=== PATIENT | male | born 1955 | race Caucasian/White ===

== ENCOUNTER 2016-07-09 08:33 | Inpatient (IN) | payer BC ==
[2016-07-09] MEDS ORDERED: SODIUM CHLORIDE 0.9% 1,000 ML IV STA (09:15)
[2016-07-09] MEDS ORDERED: FAMOTIDINE 20 MG/2 ML VIAL IV STA (09:16)
[2016-07-09] MEDS ORDERED: ACETAMINOPHEN IV (For NPO) 1,000 MG in SALINE 1 100ML.BAG IVPB STA (09:16)
--- NOTE | 2016-07-09 09:19 | ED ---
GI Bleed HPI - General Chief complaint: GI Bleed Stated complaint: vomiting blood/Stomach pain Time Seen by Provider: 07/09/16 08:50 Source: patient, RN notes reviewed Mode of arrival: ambulatory Limitations: no limitations - History of Present Illness Initial comments: This is a 61-year-old male with a history of asthma was a nonsmoker and has polycythemia but otherwise unremarkable history who states he had the onset this morning of queasiness and upset stomach he had nausea and vomited a large amount of dark red bloody appearing material. He feels somewhat lightheaded and dizzy is upper abdominal discomfort is mild to moderate. No chest pain no shortness breath no other symptoms. No diarrhea no blood per rectum. He has no prior history of GI bleeding. He states he did lose his insurance last year he was diagnosed with polycythemia about 2 years ago he's had no blood draw in a while. MD complaint: gross hematemesis - Related Data Home Medications Medication Instructions Recorded Confirmed Albuterol Sulfate [Proair Hfa] 2 puff INHALATION RT-Q6H PRN 11/04/14 07/09/16 Advair Hfa (Unknown Dose) 1 puff INHALATION RT-BID 07/09/16 07/09/16 Aspirin 325 mg PO DAILY 07/09/16 07/09/16 Ibuprofen [Advil] 400 mg PO Q6H PRN 07/09/16 07/09/16 Lisinopril-Hctz 10-12.5 mg 1 tab PO DAILY 07/09/16 07/09/16 [Zestoretic 10-12.5] Allergies Allergy/AdvReac Type Severity Reaction Status Date / Time influenza virus vaccine, Allergy Unknown Verified 07/09/16 08:44 specific [influenza virus vacc,specific] Review of Systems ROS Statement: Those systems with pertinent positive or pertinent negative responses have been documented in the HPI. ROS Other: All systems not noted in ROS Statement are negative. Past Medical History Past Medical History: Asthma Additional Past Medical History / Comment(s): blood disorder History of Any Multi-Drug Resistant Organisms: None Reported Past Surgical History: Hernia Repair Past Psychological History: No Psychological Hx Reported Smoking Status: Never smoker Past Alcohol Use History: Occasional Past Drug Use History: None Reported General Exam - General Exam Comments Initial Comments: This is a well-developed well-nourished awake alert oriented 3 male Limitations: no limitations General appearance: alert Head exam: Present: atraumatic, normocephalic, normal inspection Eye exam: Present: PERRL, EOMI, other (Pale conjunctiva) ENT exam: Present: normal exam, mucous membranes moist Neck exam: Present: normal inspection. Absent: tenderness, meningismus, lymphadenopathy Respiratory exam: Present: normal lung sounds bilaterally. Absent: respiratory distress, wheezes, rales, rhonchi, stridor Cardiovascular Exam: Present: regular rate, normal rhythm, normal heart sounds. Absent: systolic murmur, diastolic murmur, rubs, gallop, clicks GI/Abdominal exam: Present: soft, tenderness (Epigastric tenderness palpation), hyperactive bowel sounds. Absent: distended, guarding, rebound, rigid Rectal exam: Present: heme (+) stool, black stool. Absent: mass, tenderness Extremities exam: Present: normal inspection, full ROM, normal capillary refill. Absent: tenderness, pedal edema, joint swelling, calf tenderness Back exam: Present: normal inspection Neurological exam: Present: alert, oriented X3, CN II-XII intact Psychiatric exam: Present: normal affect, normal mood Skin exam: Present: warm, dry, intact, pallor. Absent: rash Course Vital Signs 07/09/16 07/09/16 07/09/16 08:41 09:51 10:56 Temperature 97.6 F Pulse Rate 98 88 92 Respiratory 24 18 18 Rate Blood Pressure 92/57 100/57 140/74 O2 Sat by Pulse 97 95 98 Oximetry 07/09/16 12:05 Temperature Pulse Rate 102 H Respiratory 18 Rate Blood Pressure 130/82 O2 Sat by Pulse 97 Oximetry - Reevaluation(s) Reevaluation #1: 07/09/16 12:51 I did perform a rectal exam of the patient was heme positive. Patient potassium initially was read as elevated repeat trough reveals a 6.0 potassium level patient is there had a problem with that before. Medical Decision Making - Medical Decision Making Patient will be admitted with GI consultation. - Lab Data Result diagrams: 07/09/16 09:14 07/09/16 12:03 Lab Results 07/09/16 07/09/16 07/09/16 Range/Units 09:14 09:14 09:14 WBC 40.9 H* (3.8-10.6) k/uL RBC 6.73 H (4.30-5.90) m/uL Hgb 16.7 (13.0-17.5) gm/dL Hct 53.9 H (39.0-53.0) % MCV 80.1 (80.0-100.0) fL MCH 24.9 L (25.0-35.0) pg MCHC 31.1 (31.0-37.0) g/dL RDW 16.8 H (11.5-15.5) % Plt Count 768 H (150-450) k/uL Neutrophils % (Manual) 81.5 % Band Neutrophils % 4.0 % Lymphocytes % (Manual) 10.5 % Monocytes % (Manual) 3.0 % Eosinophils % (Manual) 0.5 % Myelocytes % 0.5 % Neutrophils # (Manual) 35.0 H (1.3-7.7) k/uL Lymphocytes # (Manual) 4.3 (1.0-4.8) k/uL Monocytes # (Manual) 1.2 H (0-1.0) k/uL Eosinophils # (Manual) 0.2 (0-0.7) k/uL Nucleated RBCs 0 (0-0) /100 WBC Manual Slide Review Performed Large Platelets Present Poikilocytosis (manual Present Anisocytosis Slight PT (9.0-12.0) sec INR (<1.1) APTT (22.0-30.0) sec Sodium 137 (137-145) mmol/L Potassium 6.6 H* (3.5-5.1) mmol/L Chloride 102 (98-107) mmol/L Carbon Dioxide 24 (22-30) mmol/L Anion Gap 11 mmol/L BUN 68 H (9-20) mg/dL Creatinine 1.12 (0.66-1.25) mg/dL Est GFR (MDRD) Af Amer >60 (>60 ml/min/1.73 sqM) Est GFR (MDRD) Non-Af >60 (>60 ml/min/1.73 sqM) Glucose 187 H (74-99) mg/dL Calcium 9.4 (8.4-10.2) mg/dL Magnesium 2.3 (1.6-2.3) mg/dL Total Bilirubin 0.7 (0.2-1.3) mg/dL AST 29 (17-59) U/L ALT 49 (21-72) U/L Alkaline Phosphatase 98 (38-126) U/L Total Creatine Kinase 35 L (55-170) U/L CK-MB (CK-2) 1.6 (0.0-2.4) ng/mL CK-MB (CK-2) Rel Index 4.6 Troponin I <0.012 (0.000-0.034) ng/mL Total Protein 7.0 (6.3-8.2) g/dL Albumin 3.8 (3.5-5.0) g/dL Amylase 36 (30-110) U/L Lipase 247 (23-300) U/L Stool Occult Blood (Negative) Blood Type Blood Type Confirm Blood Type Recheck Antibody Screen Spec Expiration Date 07/09/16 07/09/16 07/09/16 Range/Units 09:14 09:14 10:37 WBC (3.8-10.6) k/uL RBC (4.30-5.90) m/uL Hgb (13.0-17.5) gm/dL Hct (39.0-53.0) % MCV (80.0-100.0) fL MCH (25.0-35.0) pg MCHC (31.0-37.0) g/dL RDW (11.5-15.5) % Plt Count (150-450) k/uL Neutrophils % (Manual) % Band Neutrophils % % Lymphocytes % (Manual) % Monocytes % (Manual) % Eosinophils % (Manual) % Myelocytes % % Neutrophils # (Manual) (1.3-7.7) k/uL Lymphocytes # (Manual) (1.0-4.8) k/uL Monocytes # (Manual) (0-1.0) k/uL Eosinophils # (Manual) (0-0.7) k/uL Nucleated RBCs (0-0) /100 WBC Manual Slide Review Large Platelets Poikilocytosis (manual Anisocytosis PT 12.6 H (9.0-12.0) sec INR 1.3 (<1.1) APTT 23.2 (22.0-30.0) sec Sodium (137-145) mmol/L Potassium (3.5-5.1) mmol/L Chloride (98-107) mmol/L Carbon Dioxide (22-30) mmol/L Anion Gap mmol/L BUN (9-20) mg/dL Creatinine (0.66-1.25) mg/dL Est GFR (MDRD) Af Amer (>60 ml/min/1.73 sqM) Est GFR (MDRD) Non-Af (>60 ml/min/1.73 sqM) Glucose (74-99) mg/dL Calcium (8.4-10.2) mg/dL Magnesium (1.6-2.3) mg/dL Total Bilirubin (0.2-1.3) mg/dL AST (17-59) U/L ALT (21-72) U/L Alkaline Phosphatase (38-126) U/L Total Creatine Kinase (55-170) U/L CK-MB (CK-2) (0.0-2.4) ng/mL CK-MB (CK-2) Rel Index Troponin I (0.000-0.034) ng/mL Total Protein (6.3-8.2) g/dL Albumin (3.5-5.0) g/dL Amylase (30-110) U/L Lipase (23-300) U/L Stool Occult Blood (Negative) Blood Type A Positive Blood Type Confirm A Positive Blood Type Recheck CABO Indicated Antibody Screen NEGATIVE Spec Expiration Date 07/12/2016231307/09/16 07/09/16 Range/Units 11:20 12:03 WBC (3.8-10.6) k/uL RBC (4.30-5.90) m/uL Hgb (13.0-17.5) gm/dL Hct (39.0-53.0) % MCV (80.0-100.0) fL MCH (25.0-35.0) pg MCHC (31.0-37.0) g/dL RDW (11.5-15.5) % Plt Count (150-450) k/uL Neutrophils % (Manual) % Band Neutrophils % % Lymphocytes % (Manual) % Monocytes % (Manual) % Eosinophils % (Manual) % Myelocytes % % Neutrophils # (Manual) (1.3-7.7) k/uL Lymphocytes # (Manual) (1.0-4.8) k/uL Monocytes # (Manual) (0-1.0) k/uL Eosinophils # (Manual) (0-0.7) k/uL Nucleated RBCs (0-0) /100 WBC Manual Slide Review Large Platelets Poikilocytosis (manual Anisocytosis PT (9.0-12.0) sec INR (<1.1) APTT (22.0-30.0) sec Sodium (137-145) mmol/L Potassium 6.0 H (3.5-5.1) mmol/L Chloride (98-107) mmol/L Carbon Dioxide (22-30) mmol/L Anion Gap mmol/L BUN (9-20) mg/dL Creatinine (0.66-1.25) mg/dL Est GFR (MDRD) Af Amer (>60 ml/min/1.73 sqM) Est GFR (MDRD) Non-Af (>60 ml/min/1.73 sqM) Glucose (74-99) mg/dL Calcium (8.4-10.2) mg/dL Magnesium (1.6-2.3) mg/dL Total Bilirubin (0.2-1.3) mg/dL AST (17-59) U/L ALT (21-72) U/L Alkaline Phosphatase (38-126) U/L Total Creatine Kinase (55-170) U/L CK-MB (CK-2) (0.0-2.4) ng/mL CK-MB (CK-2) Rel Index Troponin I (0.000-0.034) ng/mL Total Protein (6.3-8.2) g/dL Albumin (3.5-5.0) g/dL Amylase (30-110) U/L Lipase (23-300) U/L Stool Occult Blood Positive (Negative) Blood Type Blood Type Confirm Blood Type Recheck Antibody Screen Spec Expiration Date - EKG Data -: EKG Interpreted by Hi EKG shows normal: sinus rhythm, axis, intervals, QRS complexes, ST-T waves (EKG shows a normal sinus rhythm of 95 MI interval 146 QRS duration 82 QT/QTC of 344/ 43 to this is a normal-appearing EKG.) Rate: normal - Radiology Data Radiology results: report reviewed (X-rays and imaging/report were reviewed no acute findings), image reviewed Disposition Clinical Impression: Hematochezia, Upper GI bleed, Hyperkalemia Disposition: ADMITTED IP TO THIS [facility] Condition: Stable
[2016-07-09 09:35] LABS: Anisocytosis Slight; CH 25.3; CHCM 31.8; HCT 53.9 % (39.0-53.0); HDW 2.79; HGB 16.7 gm/dL (13.0-17.5); Immature Gran Flag Slight; MCH 24.9 pg (25.0-35.0); MCHC 31.1 g/dL (31.0-37.0); MCV 80.1 fL (80.0-100.0); Mean Platelet Volume 7.9; RBC 6.73 m/uL (4.30-5.90); RDW 16.8 % (11.5-15.5); WBC (Perox) 42.15
[2016-07-09 09:47] LABS: ALT 49 U/L (21-72); AST 29 U/L (17-59); Alkaline Phosphatase 98 U/L (38-126); Amylase 36 U/L (30-110); Anion Gap 11 mmol/L; Blood Urea Nitrogen 68 mg/dL (9-20); Calcium 9.4 mg/dL (8.4-10.2); Carbon Dioxide 24 mmol/L (22-30); Chloride 102 mmol/L (98-107); Glucose 187 mg/dL (74-99); Magnesium 2.3 mg/dL (1.6-2.3); Non-African American GFR(MDRD) >60 (>60 ml/min/1.73 sqM); Sodium 137 mmol/L (137-145); Total Bilirubin 0.7 mg/dL (0.2-1.3)
--- NOTE | 2016-07-09 09:50 | XR ---
EXAMINATION TYPE: XR chest 2V DATE OF EXAM: 07/09/2016 9:39 AM COMPARISON: Prior chest x-ray unavailable HISTORY: Vomiting blood, pain and nausea TECHNIQUE: Frontal and lateral views of the chest are obtained. FINDINGS: There is no focal air space opacity, pleural effusion, or pneumothorax seen. The cardiac silhouette size is within normal limits. There are overlying cardiac leads. Patient is rotated. Incr eased AP diameter of the chest and retrosternal airspace could be indicative of underlying COPD. Dens ity at the left heart border thought likely to be related to epicardial fat pad. The osseous structur es are intact. IMPRESSION: No acute cardiopulmonary process. Additional findings above.
--- NOTE | 2016-07-09 09:51 | XR ---
Abdomen HISTORY: Pain and nausea Frontal view of the abdomen submitted on 2 images Comparison to chest x-ray same date There is no bowel obstruction or pneumoperitoneum. Fluid-filled stomach is present. Suspect phlebolit hs in the pelvis. Density at the left costophrenic angle may reflect some minimal scarring, difficult to exclude small amount of effusion. IMPRESSION: Findings of the left lung bases described. Nonobstructive bowel gas pattern.
[2016-07-09 09:52] LABS: INR 1.3 (<1.1); Partial Thromboplastin Time 23.2 sec (22.0-30.0); Prothrombin Time 12.6 sec (9.0-12.0)
[2016-07-09 09:54] LABS: WBC 40.9 k/uL (3.8-10.6)
[2016-07-09 09:56] LABS: Creatine Kinase 35 U/L (55-170)
[2016-07-09 10:01] LABS: Potassium 6.6 mmol/L (3.5-5.1)
[2016-07-09 10:08] LABS: Creatine Kinase MB 1.6 ng/mL (0.0-2.4); Troponin I <0.012 ng/mL (0.000-0.034)
[2016-07-09 10:13] LABS: Add Differential Manual Differential
[2016-07-09 10:16] LABS: Large Platelets Present; Manual Review Performed; Myelocytes % 0.5 %; Nucleated Red Blood Cells 0 /100 WBC (0-0); Total Cells Counted 200
[2016-07-09] MEDS ORDERED: NALOXONE 0.4 MG/ML 1 ML VIAL IV PRN (12:53)
[2016-07-09] MEDS ORDERED: FUROSEMIDE 10 MG/ML 4 ML VIAL IV STA (12:56)
--- NOTE | 2016-07-09 12:58 | ED ---
Medical Decision Making - Lab Data Result diagrams: 07/09/16 09:14 07/09/16 12:03 Lab Results 07/09/16 07/09/16 07/09/16 Range/Units 09:14 09:14 09:14 WBC 40.9 H* (3.8-10.6) k/uL RBC 6.73 H (4.30-5.90) m/uL Hgb 16.7 (13.0-17.5) gm/dL Hct 53.9 H (39.0-53.0) % MCV 80.1 (80.0-100.0) fL MCH 24.9 L (25.0-35.0) pg MCHC 31.1 (31.0-37.0) g/dL RDW 16.8 H (11.5-15.5) % Plt Count 768 H (150-450) k/uL Neutrophils % (Manual) 81.5 % Band Neutrophils % 4.0 % Lymphocytes % (Manual) 10.5 % Monocytes % (Manual) 3.0 % Eosinophils % (Manual) 0.5 % Myelocytes % 0.5 % Neutrophils # (Manual) 35.0 H (1.3-7.7) k/uL Lymphocytes # (Manual) 4.3 (1.0-4.8) k/uL Monocytes # (Manual) 1.2 H (0-1.0) k/uL Eosinophils # (Manual) 0.2 (0-0.7) k/uL Nucleated RBCs 0 (0-0) /100 WBC Manual Slide Review Performed Large Platelets Present Poikilocytosis (manual Present Anisocytosis Slight PT (9.0-12.0) sec INR (<1.1) APTT (22.0-30.0) sec Sodium 137 (137-145) mmol/L Potassium 6.6 H* (3.5-5.1) mmol/L Chloride 102 (98-107) mmol/L Carbon Dioxide 24 (22-30) mmol/L Anion Gap 11 mmol/L BUN 68 H (9-20) mg/dL Creatinine 1.12 (0.66-1.25) mg/dL Est GFR (MDRD) Af Amer >60 (>60 ml/min/1.73 sqM) Est GFR (MDRD) Non-Af >60 (>60 ml/min/1.73 sqM) Glucose 187 H (74-99) mg/dL Calcium 9.4 (8.4-10.2) mg/dL Magnesium 2.3 (1.6-2.3) mg/dL Total Bilirubin 0.7 (0.2-1.3) mg/dL AST 29 (17-59) U/L ALT 49 (21-72) U/L Alkaline Phosphatase 98 (38-126) U/L Total Creatine Kinase 35 L (55-170) U/L CK-MB (CK-2) 1.6 (0.0-2.4) ng/mL CK-MB (CK-2) Rel Index 4.6 Troponin I <0.012 (0.000-0.034) ng/mL Total Protein 7.0 (6.3-8.2) g/dL Albumin 3.8 (3.5-5.0) g/dL Amylase 36 (30-110) U/L Lipase 247 (23-300) U/L Stool Occult Blood (Negative) Blood Type Blood Type Confirm Blood Type Recheck Antibody Screen Spec Expiration Date 07/09/16 07/09/16 07/09/16 Range/Units 09:14 09:14 10:37 WBC (3.8-10.6) k/uL RBC (4.30-5.90) m/uL Hgb (13.0-17.5) gm/dL Hct (39.0-53.0) % MCV (80.0-100.0) fL MCH (25.0-35.0) pg MCHC (31.0-37.0) g/dL RDW (11.5-15.5) % Plt Count (150-450) k/uL Neutrophils % (Manual) % Band Neutrophils % % Lymphocytes % (Manual) % Monocytes % (Manual) % Eosinophils % (Manual) % Myelocytes % % Neutrophils # (Manual) (1.3-7.7) k/uL Lymphocytes # (Manual) (1.0-4.8) k/uL Monocytes # (Manual) (0-1.0) k/uL Eosinophils # (Manual) (0-0.7) k/uL Nucleated RBCs (0-0) /100 WBC Manual Slide Review Large Platelets Poikilocytosis (manual Anisocytosis PT 12.6 H (9.0-12.0) sec INR 1.3 (<1.1) APTT 23.2 (22.0-30.0) sec Sodium (137-145) mmol/L Potassium (3.5-5.1) mmol/L Chloride (98-107) mmol/L Carbon Dioxide (22-30) mmol/L Anion Gap mmol/L BUN (9-20) mg/dL Creatinine (0.66-1.25) mg/dL Est GFR (MDRD) Af Amer (>60 ml/min/1.73 sqM) Est GFR (MDRD) Non-Af (>60 ml/min/1.73 sqM) Glucose (74-99) mg/dL Calcium (8.4-10.2) mg/dL Magnesium (1.6-2.3) mg/dL Total Bilirubin (0.2-1.3) mg/dL AST (17-59) U/L ALT (21-72) U/L Alkaline Phosphatase (38-126) U/L Total Creatine Kinase (55-170) U/L CK-MB (CK-2) (0.0-2.4) ng/mL CK-MB (CK-2) Rel Index Troponin I (0.000-0.034) ng/mL Total Protein (6.3-8.2) g/dL Albumin (3.5-5.0) g/dL Amylase (30-110) U/L Lipase (23-300) U/L Stool Occult Blood (Negative) Blood Type A Positive Blood Type Confirm A Positive Blood Type Recheck CABO Indicated Antibody Screen NEGATIVE Spec Expiration Date 07/12/2016 - 231307/09/16 07/09/16 Range/Units 11:20 12:03 WBC (3.8-10.6) k/uL RBC (4.30-5.90) m/uL Hgb (13.0-17.5) gm/dL Hct (39.0-53.0) % MCV (80.0-100.0) fL MCH (25.0-35.0) pg MCHC (31.0-37.0) g/dL RDW (11.5-15.5) % Plt Count (150-450) k/uL Neutrophils % (Manual) % Band Neutrophils % % Lymphocytes % (Manual) % Monocytes % (Manual) % Eosinophils % (Manual) % Myelocytes % % Neutrophils # (Manual) (1.3-7.7) k/uL Lymphocytes # (Manual) (1.0-4.8) k/uL Monocytes # (Manual) (0-1.0) k/uL Eosinophils # (Manual) (0-0.7) k/uL Nucleated RBCs (0-0) /100 WBC Manual Slide Review Large Platelets Poikilocytosis (manual Anisocytosis PT (9.0-12.0) sec INR (<1.1) APTT (22.0-30.0) sec Sodium (137-145) mmol/L Potassium 6.0 H (3.5-5.1) mmol/L Chloride (98-107) mmol/L Carbon Dioxide (22-30) mmol/L Anion Gap mmol/L BUN (9-20) mg/dL Creatinine (0.66-1.25) mg/dL Est GFR (MDRD) Af Amer (>60 ml/min/1.73 sqM) Est GFR (MDRD) Non-Af (>60 ml/min/1.73 sqM) Glucose (74-99) mg/dL Calcium (8.4-10.2) mg/dL Magnesium (1.6-2.3) mg/dL Total Bilirubin (0.2-1.3) mg/dL AST (17-59) U/L ALT (21-72) U/L Alkaline Phosphatase (38-126) U/L Total Creatine Kinase (55-170) U/L CK-MB (CK-2) (0.0-2.4) ng/mL CK-MB (CK-2) Rel Index Troponin I (0.000-0.034) ng/mL Total Protein (6.3-8.2) g/dL Albumin (3.5-5.0) g/dL Amylase (30-110) U/L Lipase (23-300) U/L Stool Occult Blood Positive (Negative) Blood Type Blood Type Confirm Blood Type Recheck Antibody Screen Spec Expiration Date Disposition Clinical Impression: Upper GI bleed, Hyperkalemia, Hematemesis Disposition: ADMITTED IP TO THIS [facility] Condition: Stable Referrals: Lissy Rios MD [Primary Care Provider] - 1-2 days
[2016-07-09] MEDS: ALBUTEROL NEBULIZED 2.5 MG/3 ML INHALATION SCH ×2 (15:55→19:44)
[2016-07-09] MEDS: SODIUM CHLORIDE 0.9% 1,000 ML IV SCH ×2 (17:48→22:12)
[2016-07-09 20:22] LABS: Glucose,Whole Blood 143 mg/dL (75-99)
[2016-07-09] MEDS ORDERED: HYDROmorphone 1 MG/ML 1 ML SYRINGE IVP PRN (21:59)
[2016-07-09] MEDS ORDERED: ONDANSETRON 4 MG/2 ML VIAL IVP PRN (21:59)
[2016-07-09] MEDS: PANTOPRAZOLE 40 MG/10 ML VIAL IVP SCH (22:12)
[2016-07-09] MEDS: MELATONIN 3 MG TABLET PO SCH (23:29)
[2016-07-10] MEDS: PANTOPRAZOLE 40 MG/10 ML VIAL IVP SCH ×2 (07:55→22:21)
[2016-07-10 08:03] LABS: Anion Gap 10 mmol/L; Calcium 8.6 mg/dL (8.4-10.2); Carbon Dioxide 21 mmol/L (22-30); Chloride 115 mmol/L (98-107); Glucose 115 mg/dL (74-99); Non-African American GFR(MDRD) >60 (>60 ml/min/1.73 sqM); Potassium 5.3 mmol/L (3.5-5.1); Sodium 146 mmol/L (137-145)
[2016-07-10 08:09] LABS: Blood Urea Nitrogen 87 mg/dL (9-20)
[2016-07-10] MEDS: ALBUTEROL NEBULIZED 2.5 MG/3 ML INHALATION SCH ×3 (09:04→18:11)
--- NOTE | 2016-07-10 09:09 | P.CONS ---
History of Present Illness - Reason for Consult Consult date: 07/10/16 Hematemesis Requesting physician: Andrew Salinas - History of Present Illness 61-year-old gentleman patient of Dr. Rios with a past medical history of myeloproliferative blood disorder; patient is unsure possibly polycythemia vera , Mancuso's esophagus, hiatal hernia, and GERD. Admitted with acute hematemesis 1 yesterday. No aspirin, NSAIDs or alcohol. No history GI bleed. No weight loss. Afebrile. Patient was feeling somewhat nauseated over the last few days with midepigastric discomfort. Denies hematochezia or melena. Admission white count 40.9. Hemoglobin 16.7. Platelets 768. INR 1.3. Potassium 6.6. Stool occult blood positive. BUN 68. Creatinine 1.1. Repeat electrolytes this morning sodium 146. Potassium 5.3. BUN 87. Creatinine 0.9. CBC pending. Abdominal x-rays no bowel obstruction or pneumoperitoneum. Chest x-ray no acute cardiopulmonary process. EGD colonoscopy 2007 reported long segment of Mancuso's esophagus with linear erosions consistent with grade 3 reflux esophagitis colonoscopy normal with rectal polypectomy. Review of Systems Constitutional: Denies fever, chills, sweats, weight gain, or loss. HEENT: Negative for migraines, blurred vision or loss, earaches, drainage, tinnitus, oral mucosal lesions, dysphagia, or odynophagia. Cardiac: Negative for chest pain, arrhythmias, or palpitation. Respiratory: Negative for shortness of breath, hemoptysis, cough, or sputum production. Gastrointestinal: See HPI for pertinent findings. Genitourinary: Negative for hematuria, urgency, frequency, polyuria, dysuria, or penile discharge. Musculoskeletal: Negative for muscle aches, swelling, arthritis, and arthralgias. Neurologic: Negative for stroke or TIA. Endocrine/hematology: Negative for thyroid problems. History of blood disorder patient is unsure possibly polycythemia vera. Skin: Negative for rash or itching. Psychiatric: ADHD, history of anxiety depression. All systems: negative (See HPI) Past Medical History Past Medical History: Asthma, Blood Disorder, GERD/Reflux Additional Past Medical History / Comment(s): blood disorder-pt does not recall name but it causes blood to be too thick, mancuso's esophagus, small hiatal hernia, esophagitis/gastritis, recent URI completed ABX. History of Any Multi-Drug Resistant Organisms: None Reported Past Surgical History: Hernia Repair Additional Past Surgical History / Comment(s): Inguinal hernia repair (pt cannot recall laterallity), EGD/colonoscopy with benign polypectomy. Past Anesthesia/Blood Transfusion Reactions: No Reported Reaction Past Psychological History: ADD/ADHD, Anxiety, Depression Additional Psychological History / Comment(s): Pt resides alone. He is independent. Smoking Status: Never smoker Past Alcohol Use History: Occasional Past Drug Use History: None Reported - Past Family History Father Family Medical History: Eye Disorder Additional Family Medical History / Comment(s): Father is 90 yrs old. He has macular degeneration. Mother Family Medical History: Respiratory Disorder Additional Family Medical History / Comment(s): Mother is 88yrs old and has respiratory problems. Medications and Allergies Home Medications Medication Instructions Recorded Confirmed Type Albuterol Sulfate [Proair Hfa] 2 puff INHALATION RT-Q6H PRN 11/04/14 07/09/16 History Advair Hfa (Unknown Dose) 1 puff INHALATION RT-BID 07/09/16 07/09/16 History Aspirin 325 mg PO DAILY 07/09/16 07/09/16 History Ibuprofen [Advil] 400 mg PO Q6H PRN 07/09/16 07/09/16 History Lisinopril-Hctz 10-12.5 mg 1 tab PO DAILY 07/09/16 07/09/16 History [Zestoretic 10-12.5] Allergies Allergy/AdvReac Type Severity Reaction Status Date / Time influenza virus vaccine, Allergy Unknown Verified 07/09/16 08:44 specific [influenza virus vacc,specific] Physical Exam Vitals: Vital Signs Temp Pulse Pulse Resp BP BP Pulse Ox 07/10/16 08:00 100 07/10/16 07:00 97.9 F 100 16 133/68 97 07/09/16 23:45 80 07/09/16 23:00 97.3 F L 104 H 18 129/66 94 L 07/09/16 16:15 97.4 F L 99 16 117/59 94 L 07/09/16 16:05 100 07/09/16 16:00 99 16 07/09/16 15:55 100 07/09/16 15:16 97.1 F L 103 H 16 145/79 100 07/09/16 14:20 97.8 F 103 H 16 119/62 93 L 07/09/16 13:49 98 112/55 93 L Intake and Output 07/09/16 07/10/16 07/10/16 22:59 06:59 14:59 Intake Total 750 Output Total 0 Balance 750 0 Intake: IV 750 Sodium Chloride 0.9% 1, 750 000 ml @ 125 mls/hr IV . [facility] Rx#:[id number] Output: Stool 0 Other: Voiding Method Toilet # Voids 2 3 # Bowel Movements 2 3 General appearance: The patient is alert, oriented, in no acute distress. HET: Head is normocephalic and atraumatic. Pupils are equal and reactive. Oropharynx is clear without lesions. Neck: Supple without lymphadenopathy. Trachea midline. Heart: S1 S2. Regular rate and rhythm. Lungs: No crackles or wheezes are heard. Abdomen: Soft, very mild midepigastric tenderness, nondistended with bowel sounds. No peritoneal signs. No palpable organomegaly or masses. Extremities: Normal skin color and turgor. No cyanosis, rash, ulceration, clubbing, or edema. Radial and pedal pulses are 2/4 bilaterally. Neurological: No focal deficits. Strength and sensation are grossly intact. Results CBC & Chem 7: 07/11/16 08:32 07/10/16 07:22 Labs: Abnormal Lab Results - Last 24 Hours (Table) 07/09/16 07/10/16 Range/Units 20:20 07:22 Sodium 146 H (137-145) mmol/L Potassium 5.3 H (3.5-5.1) mmol/L Chloride 115 H (98-107) mmol/L Carbon Dioxide 21 L (22-30) mmol/L BUN 87 H* (9-20) mg/dL Glucose 115 H (74-99) mg/dL POC Glucose (mg/dL) 143 H (75-99) mg/dL Abdominal x-ray: report reviewed (Reviewed by Dr. Campa) Assessment and Plan (1) Hematemesis Narrative/Plan: 61-year-old gentleman admitted with acute onset of nausea, midepigastric discomfort, and one time episode of hematemesis with a history of underlying Mancuso's esophagus, blood disorder and leukocytosis. Status: Acute (2) Upper GI bleed Status: Acute (3) Hyperkalemia Status: Acute (4) Blood disorder Status: Acute (5) Leukocytosis Status: Acute Plan: 1. Clear liquid diet. Nothing by mouth after midnight for EGD evaluation tomorrow. 2. Hematology consultation for history of blood disorder. 3. Protonix 40 mg IV twice daily. The roundhouse supervisor has discussed the risks, benefits and alternative therapies for the above-mentioned procedure and for both sedation/analgesia as well as necessary blood product administration, if indicated, as they pertain to this patient. The patient has indicated understanding and acceptance of the risks and procedures discussed. Thank you for this kind referral and the opportunity to participate in the care of your patient. This consultation was discussed with Dr. Campa. The impression and plan of care have been directed as dictated.
[2016-07-10] MEDS: LISINOPRIL-HCTZ 10-12.5 MG 1 EACH TAB PO SCH (10:40)
--- NOTE | 2016-07-10 11:05 | HP ---
DATE OF ADMISSION: 07/09/2016 PRESENTING COMPLAINT: Vomiting blood. HISTORY OF PRESENTING COMPLAINT: This is a 61-year-old patient of Dr. Lissy iRos whose chronic stable medical conditions include asthma, patient probably may have a diagnosis of thrombocytosis or could be even polycythemia, GERD. The patient had an EGD several years ago. 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 Patient does get GERD off and on. Patient does take aspirin every day including taking NSAIDs. Patient had an upset stomach all night, nausea and vomiting. The patient did vomit a fair amount of blood. Also had a dark bowel movement today. Does feel tired and rundown. Abdomen is churning. Feels weak, tired and run down. Patient's family is at the bedside. REVIEW OF SYSTEMS: CONSTITUTIONAL: Weak, tired. HEENT: None. RESPIRATORY: None. CARDIOVASCULAR: None. GASTROINTESTINAL: As above. GENITOURINARY: None. MUSCULOSKELETAL: None. DERMATOLOGICAL: None. HEMATOLOGIC: None. LYMPHATICS: None. PSYCHIATRY: None. NEUROLOGICAL: None. Past history of asthma, blood disorder, GERD, Hatch's esophagus, gastritis. PAST SURGICAL HISTORY: Hernia repair, EGD, colonoscopy showing Hatch's esophagus. Past psych history of ADHD, anxiety, depression. SOCIAL HISTORY: Lives alone. No smoking. Alcohol, patient doing a few drinks once a week. Family history of macular degeneration. HOME MEDICATIONS: 1. Advil 400 mg p.o. q.6 p.r.n. 2. Advair 1 puff b.i.d. 3. Zestoretic 03/27.5 one tablet daily. 4. Aspirin 325 p.o. daily. 5. ProAir 2 puffs q.6 p.r.n. Allergies to INFLUENZA VACCINE. On examination, temperature 97.3, pulse 104, respirations 18, blood pressure 129/66, pulse ox 94% on room air. GENERAL APPEARANCE: Thin appearance, well built; BMI of 33.9, lying in bed, tired appearing. EYES: Pupils equal. Conjunctivae normal. HEENT: External appearance of nose and ears normal. Oral cavity normal. NECK: JVD not raised. Mass not palpable. RESPIRATORY: Effort normal. Lungs are clear. CARDIOVASCULAR: First and second sounds normal. No edema. ABDOMEN: Upper abdomen no tenderness. No guarding or rigidity. Liver and spleen not palpable. LYMPHATIC: No lymph node palpable in neck or axillae. PSYCHIATRY: Alert and oriented x3. Mood and affect normal. NEUROLOGICAL: Pupils equal. Cranial nerves grossly intact. Power and sensation grossly intact. INVESTIGATIONS: White count 40.9, hemoglobin 16.7, platelets 768. Potassium 6.6, repeated is 6 again hemolyzed, BUN 68. ( ) stool is positive. ASSESSMENT: 1. Acute upper gastrointestinal bleed in a patient who is taking both aspirin and Aleve, very strongly suspect gastritis with possibly peptic ulcer disease. 2. Abnormal white count with a high white count, increased hematocrit and platelets ( ) thrombocytosis. 3. Hyperkalemia with some hemolysis. 4. Mild persistent asthma. 5. Chronic gastroesophageal reflux disease. 6. Obesity, body mass index of 33.9. PLAN: Patient made n.p.o. except for some ice chips, IV fluids. Put on IV PPI. Dr. Campa was consulted. Care was discussed with the patient and family members in detail. Will get Hematological opinion for blood disorder. Because of patient bleeding, no DVT prophylaxis. Questions were answered.
[2016-07-10] MEDS: SODIUM CHLORIDE 0.9% 1,000 ML IV SCH ×4 (13:44→22:47)
--- NOTE | 2016-07-10 16:41 | P.CONS ---
History of Present Illness - Reason for Consult Consult date: 07/10/16 abnormal labs Requesting physician: Andrew Salinas - Chief Complaint hematemesis - History of Present Illness Mr. Reaves is a very pleasant male. Pt was found elevation of all 3 blood cell lines on routine blood work work performed 10/18/13. Hgb 17.4, WBC 17.2, plt 696. There was no identifiable cause so referred for further evaluation. 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 Bone marrow was done on , revealing the erythroid line to be most affected, with no excess blasts or fibrosis. He was started on phlebotomies and Agrylin 0.5 mg Q day. In 05/29, Agrylin dose was increased to TID. Pt was followed up for some time with adjustments to agrylin and phlebotomies as needed. Pt was last seen by Dr. Lazo in Mar 2015-he lost insurance coverage so he was not able to follow up-he has not been on any treatment other then a daily 325mg ASA. Pt states he did not feel 2 nights ago, stomach was upset, he woke up in the AM yesterday and vomited bright red blood, he came to hospital, immediately, he has not thrown up since, he has had black stool x 2. He denies any recent illnesses, he does use aleve for MS aches once in a while, no chronic NSAID use, denies easy bruising, SOB, never a smoker, drinks once a week socially, no diagnosis of cirrhosis or liver disease, no excessive fatigue, unintentional wt. loss, he states usual state of health, no acute changes other then presenting problem. Review of Systems All systems: negative Constitutional: Reports as per HPI Past Medical History Past Medical History: Asthma, Blood Disorder, GERD/Reflux Additional Past Medical History / Comment(s): blood disorder-pt does not recall name but it causes blood to be too thick, mancuso's esophagus, small hiatal hernia, esophagitis/gastritis, recent URI completed ABX. History of Any Multi-Drug Resistant Organisms: None Reported Past Surgical History: Hernia Repair Additional Past Surgical History / Comment(s): Inguinal hernia repair (pt cannot recall laterallity), EGD/colonoscopy with benign polypectomy. Past Anesthesia/Blood Transfusion Reactions: No Reported Reaction Past Psychological History: ADD/ADHD, Anxiety, Depression Additional Psychological History / Comment(s): Pt resides alone. He is independent. Smoking Status: Never smoker Past Alcohol Use History: Occasional Past Drug Use History: None Reported - Past Family History Father Family Medical History: Eye Disorder Additional Family Medical History / Comment(s): Father is 90 yrs old. He has macular degeneration. Mother Family Medical History: Respiratory Disorder Additional Family Medical History / Comment(s): Mother is 88yrs old and has respiratory problems. Medications and Allergies Home Medications Medication Instructions Recorded Confirmed Type Albuterol Sulfate [Proair Hfa] 2 puff INHALATION RT-Q6H PRN 11/04/14 07/09/16 History Advair Hfa (Unknown Dose) 1 puff INHALATION RT-BID 07/09/16 07/09/16 History Aspirin 325 mg PO DAILY 07/09/16 07/09/16 History Ibuprofen [Advil] 400 mg PO Q6H PRN 07/09/16 07/09/16 History Lisinopril-Hctz 10-12.5 mg 1 tab PO DAILY 07/09/16 07/09/16 History [Zestoretic 10-12.5] Allergies Allergy/AdvReac Type Severity Reaction Status Date / Time influenza virus vaccine, Allergy Unknown Verified 07/09/16 08:44 specific [influenza virus vacc,specific] Physical Exam Vitals: Vital Signs Temp Pulse Pulse Resp BP BP Pulse Ox 07/10/16 08:00 100 07/10/16 07:00 97.9 F 100 16 133/68 97 07/09/16 23:45 80 07/09/16 23:00 97.3 F L 104 H 18 129/66 94 L 07/09/16 16:15 97.4 F L 99 16 117/59 94 L 07/09/16 16:05 100 07/09/16 16:00 99 16 07/09/16 15:55 100 07/09/16 15:16 97.1 F L 103 H 16 145/79 100 07/09/16 14:20 97.8 F 103 H 16 119/62 93 L 07/09/16 13:49 98 112/55 93 L Intake and Output 07/09/16 07/10/16 07/10/16 22:59 06:59 14:59 Intake Total 750 Output Total 0 Balance 750 0 Intake: IV 750 Sodium Chloride 0.9% 1, 750 000 ml @ 125 mls/hr IV . Q8H [facility] Rx#:[id number] Output: Stool 0 Other: Voiding Method Toilet # Voids 2 3 # Bowel Movements 2 3 - Constitutional General appearance: cooperative, no acute distress, obese - EENT Eyes: anicteric sclerae, normal appearance ENT: hearing grossly normal, normal oropharynx - Neck Neck: no lymphadenopathy - Respiratory Respiratory: bilateral: CTA - Cardiovascular Rhythm: regular Heart sounds: normal: S1, S2 Abnormal Heart Sounds: no systolic murmur, no diastolic murmur, no rub, no S3 Gallop, no S4 Gallop, no click, no other leg Peripheral Edema: bilateral: None - Gastrointestinal left subcutaneous cyst, 2.5cm General gastrointestinal: no absent bowel sounds, no decreased bowel sounds, distended, no hepatomegaly, no hyperactive bowel sounds, normal bowel sounds, no organomegaly, no rigid, no scaphoid, soft, no splenomegaly, no tenderness, no umbilical hernia, no ventral hernia - Integumentary Integumentary: normal - Neurologic Neurologic: CNII-XII intact - Musculoskeletal Musculoskeletal: strength equal bilaterally - Psychiatric Psychiatric: A&O x's 3, appropriate affect, intact judgment & insight Results CBC & Chem 7: 07/09/16 09:14 07/10/16 07:22 Labs: Abnormal Lab Results - Last 24 Hours (Table) 07/09/16 07/10/16 Range/Units 20:20 07:22 Sodium 146 H (137-145) mmol/L Potassium 5.3 H (3.5-5.1) mmol/L Chloride 115 H (98-107) mmol/L Carbon Dioxide 21 L (22-30) mmol/L BUN 87 H* (9-20) mg/dL Glucose 115 H (74-99) mg/dL POC Glucose (mg/dL) 143 H (75-99) mg/dL Chest x-ray: report reviewed Abdominal x-ray: report reviewed Assessment and Plan (1) Chronic myeloproliferative disorder Narrative/Plan: Pt has not been on any treatment for MPD for nearly 2 years, he has been taking a daily ASA. Plan is to follow up with pt after this acute situation has been worked up, EGD planned for tomorrow, and discuss treatment and f/u, pt agreed and now has medical insurance to do the same. Hgb is WNDL, pt phlebotomized himself with the GI bleed, continue to monitor Hgb and any bleeding. Plt count and WBC are both more elevated then previously , felt to be reactive and also pt has not been on any treatment. We will continue to monitor CBC. Status: Chronic
[2016-07-10] MEDS: MELATONIN 3 MG TABLET PO SCH (21:30)
[2016-07-10 23:06] LABS: Anisocytosis Slight; CH 24.6; CHCM 28.2; HCT 48.8 % (39.0-53.0); HGB 13.9 gm/dL (13.0-17.5); Hypochromasia Marked; Immature Gran Flag Moderate; MCH 25.1 pg (25.0-35.0); MCHC 28.6 g/dL (31.0-37.0); Mean Platelet Volume 9.2; RBC 5.55 m/uL (4.30-5.90); RDW 17.1 % (11.5-15.5); WBC (Perox) 40.76
[2016-07-10 23:09] LABS: MCV 87.8 fL (80.0-100.0); WBC 39.2 k/uL (3.8-10.6)
[2016-07-10 23:22] LABS: Add Differential Manual Differential
[2016-07-10 23:26] LABS: Nucleated Red Blood Cells 0 /100 WBC (0-0)
[2016-07-10 23:27] LABS: Total Cells Counted 200
[2016-07-10 23:28] LABS: Manual Review Performed
[2016-07-10 23:29] LABS: Large Platelets Present; Toxic Granulation Present; Toxic Vacuolation Present
[2016-07-11] MEDS ORDERED: SODIUM CHLORIDE 0.9% 1,000 ML IV ONE (00:35)
[2016-07-11] MEDS: ALBUTEROL NEBULIZED 2.5 MG/3 ML INHALATION SCH ×5 (06:57→21:37)
[2016-07-11] MEDS: PANTOPRAZOLE 40 MG/10 ML VIAL IVP SCH (07:49)
[2016-07-11 09:58] LABS: Anisocytosis Slight; Basophils # (A) 0.2 k/uL (0-0.2); Basophils % (A) 1 %; CH 25.6; CHCM 31.2; Eosinophils # (A) 0.5 k/uL (0-0.7); Eosinophils % (A) 2 %; HCT 36.8 % (39.0-53.0); HDW 2.89; HGB 11.6 gm/dL (13.0-17.5); Hypochromasia Slight; Luc # (Auto) 0.15; Luc % (Auto) 1; Lymphocytes # (A) 2.1 k/uL (1.0-4.8); Lymphocytes % (A) 10 %; MCH 25.9 pg (25.0-35.0); MCHC 31.3 g/dL (31.0-37.0); Mean Platelet Volume 7.9; Monocytes # (A) 0.9 k/uL (0-1.0); Monocytes % (A) 4 %; Neutrophils % (A) 83 %; RBC 4.46 m/uL (4.30-5.90); RDW 17.4 % (11.5-15.5); WBC 21.8 k/uL (3.8-10.6); WBC (Perox) 21.39
[2016-07-11 10:01] LABS: MCV 82.6 fL (80.0-100.0)
[2016-07-11 10:56] LABS: Manual Review Performed
[2016-07-11] MEDS ORDERED: IV FLUID CONTINUATION 1,000 ML IV ONE (13:28)
[2016-07-11] MEDS ORDERED: PROPOFOL 10 MG/ML 20 ML VIAL IV ONE (13:30)
[2016-07-11] MEDS ORDERED: LIDOCAINE 1% INJ 10MG/ML (20 ML MDV) ONE (13:30)
--- NOTE | 2016-07-11 15:13 | PN ---
DATE OF SERVICE: 07/10/2016 PRESENTING COMPLAINT: Dark stools and vomiting blood. INTERVAL HISTORY: This patient was seen by me yesterday morning on 07/10/2016. Patient presented with vomiting blood and dark stools, felt to be multifactorial. The patient is a little bit more rested, feels tired and rundown. Family is at the bedside. GI is contemplating an EGD tomorrow morning. Review of systems done for constitutional, cardiovascular, GI, pulmonary; relevant findings as above. Patient had abdominal discomfort and is actually much better today. Current medications are reviewed that include PPIs. On examination, temperature 97.6, pulse 100, respiratory rate 18, blood pressure 127/58, pulse ox 95% on room air. GENERAL APPEARANCE: Lying in bed, tired -appearing. EYES: Pupils equal. Conjunctivae pale. NECK: JVD not raised. Mass not palpable. RESPIRATORY: Effort normal. LUNGS: Clear. CARDIOVASCULAR: First and second sounds normal. No edema. ABDOMEN: Decreased tenderness, soft, no guarding or rigidity. PSYCHIATRY: Alert and oriented x3. Mood and affect normal. INVESTIGATIONS: White count 39.2, hemoglobin 13.9, platelets 695. Potassium 5.3, BUN 87. ASSESSMENT: 1. Acute upper gastrointestinal bleed in a patient who is taking both aspirin and Aleve and also strongly suspect peptic ulcer disease. The patient is now being scheduled for EGD. 2. Leukocytosis with thrombocytosis. Work-up in place. 3. Hyperkalemia, coming down. 4. Mild persistent asthma. 5. Chronic gastroesophageal reflux disease. 6. Obesity, body mass index of 33.9. 7. Hatch's esophagus. PLAN: Awaiting input from hematology. Patient will go for EGD. Care was discussed with the patient's family members at the bedside. Continue IV fluids. Follow hemoglobin and hematocrit.
[2016-07-11] MEDS: LISINOPRIL-HCTZ 10-12.5 MG 1 EACH TAB PO SCH (15:21)
--- NOTE | 2016-07-11 15:30 | P.PCN ---
Date of Procedure: 07/11/16 Procedure(s) Performed: Procedure: Esophagogastroduodenoscopy and biopsy. Reoperative diagnosis: Upper GI bleeding. Postoperative diagnosis: 1. Moderately sized hiatal hernia with Hatch's esophagus and multiple ulcerations in the segment of Hatch's covered with white exudate and not actively bleeding at the time of this exam. 2. Mild gastritis with no ulcers or active bleeding. 3. Biopsies obtained from the antrum and from 1 of the esophageal ulcers. Preparation sedation: Were provided by anesthesia. Brief clinical history: The patient is a 61-year-old gentleman patient with a past medical history of myeloproliferative blood disorder, Hatch's esophagus, hiatal hernia, and GERD was admitted with acute hematemesis 1 on the day of admission. He has not been on any aspirin, other NSAIDs or alcohol. No history GI bleed. No weight loss. Afebrile. Patient was feeling somewhat nauseated over the prior few days with midepigastric discomfort. Denied hematochezia or melena. His admission white count 40.9. Hemoglobin 16.7. Platelets 768. INR 1.3. Potassium 6.6. Stool occult blood positive. EGD and colonoscopy in 2007 reported long segment of Hatch's esophagus with linear erosions consistent with grade 3 reflux esophagitis, colonoscopy normal with rectal polypectomy. The details are summarized in the history and physical and dictated consultation. This evaluation is to assess for a source of the upper GI bleed. Procedure: With the patient on his left lateral decubitus position and after informed consent and adequate sedation, I passed the Olympus-GIF 160 video upper endoscope through the cricopharyngeus down the esophagus. The shlomo-GE junction was at around 30 cm from the incisors and the usual esophagus continued for another 5-6 cm defining a segment of Hatch's esophagus then we encounter a moderately sized hiatal hernia around 2-3 cm in size. There were multiple ulcerations in the Hatch's segment covered with white exudate with no active bleeding. The endoscope was then passed to the rest of the stomach which was insufflated with air and inspected in detail including the retroflex view in the cardia. The stomach showed mottling and erythema diffusely, most prominent in the antrum and the immediate prepyloric area. There was a linear ulceration at the level of the diaphragmatic impression covered with white exudate. There was no active bleeding in the stomach. Pyloric channel, duodenal bulb, post bulbar area and descending duodenum appeared within normal limits. I obtained biopsies from the antrum and the esophageal ulcer then the endoscope was withdrawn. The patient tolerated the procedure well. Plan: I discussed these findings with the patient at length and I am recommending intensive medical therapy. I would recommend repeat upper endoscopy in 3 months or so to assess the healing of the ulcerations and to obtain additional biopsies from the Hatch's segment to rule out dysplasia after the healing of the ulcerations. Thereafter, I am recommending that he has an EGD every 2-3 years depending on the findings and the biopsy results in 3 months from now.
--- NOTE | 2016-07-11 17:07 | CT ---
EXAMINATION TYPE: CT brain wo con DATE OF EXAM: 07/11/2016 4:54 PM COMPARISON: NONE INDICATION: Facial asymmetry per pt RN DLP: 1204 mGycm, Automated exposure control for dose reduction was used. CONTRAST: None CT of the brain is performed utilizing 3 mm thick sections through the posterior fossa and 3 mm thick sections through the remaining calvarium. Study is not performed within 24 hours of arrival to the hospital. No abnormal hyperdensity is present to suggest an acute intracranial hemorrhage. No mass lesion is evident. No acute infarcts are evident. Ventricles and sulci are appropriate for the patient age. Paranasal sinuses and mastoid air cells within the [id number] are clear. IMPRESSIONS: 1. No acute intracranial abnormality
[2016-07-11] MEDS: PANTOPRAZOLE 40 MG TABLET PO SCH (18:16)
[2016-07-11] MEDS: FLUCONAZOLE 100 MG TAB PO SCH (18:16)
[2016-07-11] MEDS: SODIUM CHLORIDE 0.9% 1,000 ML IV SCH ×3 (18:17→22:38)
--- NOTE | 2016-07-11 19:01 | PN ---
DATE OF SERVICE: 07/11/2016 PRESENTING COMPLAINT: Dark stools, vomiting. INTERVAL HISTORY: The patient presented with dark stools and vomiting blood, very early this morning. The patient did drop his blood pressure to about 70 systolic. I gave him a fluid bolus about a liter and also his hemoglobin was down to 11 from 16 at the baseline and given his hypertension, and history I decided to give 1 units of blood. The patient running over 100 systolic now. The patient underwent an EGD that shows significant inflammation of the stomach and the esophagus. Abdominal discomfort has gone down. No further BMs. Family at the bedside. Also noticed that some facial asymmetry which is not new but may be present for a few days per the son. No change in headache. No change in vision. Review of systems done for constitutional, cardiovascular, GI, pulmonary; relevant findings as above. Continue medications are reviewed. On examination, temperature 97.5, pulse 78, respirations 16, blood pressure 109/67, pulse ox 96% on room air. GENERAL APPEARANCE: Sitting in bed, not in distress. EYES: Pupils equal. Conjunctivae pale. NECK: JVD not raised. Mass not palpable. RESPIRATORY: Effort normal. LUNGS: Fair air entry. CARDIOVASCULAR: First and second sounds normal. No edema. ABDOMEN: Minimal tenderness, soft. Liver and spleen not palpable. PSYCHIATRY: Alert and oriented x3. Mood and affect normal. NEUROLOGICAL: Very slight facial asymmetry, marked ( ) to the left. Otherwise power and sensation grossly intact. INVESTIGATIONS: White count 21.8, hemoglobin 11.6. ASSESSMENT: 1. Acute severe gastrointestinal bleed from severe esophagitis and gastritis with multiple ulcers in the esophageal. 2. Severe esophagitis with multiple esophageal ulcers with some white patches. 3. Leukocytosis with thrombocytosis. Hematological work-up in place. 4. Hyperkalemia coming down. 5. Mild persistent asthma. 6. Chronic gastroesophageal reflux disease. 7. Obesity, body mass index of 33.9. 8. Hatch's esophagus severe. 9. Acute severe blood loss anemia with hypertension requiring blood transfusion with possible shock. 10. Possible recent stroke. PLAN: Patient will be kept on IV fluids. Repeat a CBC in the morning. Patient's diet will be advanced as tolerated. We will stop patient's Zestoretic, add some Diflucan and patient to continue on Protonix. We will do a carotid Doppler. A CT scan of the brain cannot give any aspirin, antiplatelet agents, at the present time and will check a lipid profile and also add Lipitor.
[2016-07-11 22:22] VITALS: RESP 18
[2016-07-11] MEDS: MELATONIN 3 MG TABLET PO SCH (22:31)
[2016-07-12] MEDS: SODIUM CHLORIDE 0.9% 1,000 ML IV SCH ×2 (05:10→08:33)
[2016-07-12] MEDS: ALBUTEROL NEBULIZED 2.5 MG/3 ML INHALATION SCH ×2 (07:05→10:51)
[2016-07-12 07:58] VITALS: BP 118/67; TEMP 97.8
[2016-07-12 08:29] LABS: Anion Gap 8 mmol/L; Blood Urea Nitrogen 16 mg/dL (9-20); Calcium 7.6 mg/dL (8.4-10.2); Carbon Dioxide 22 mmol/L (22-30); Chloride 113 mmol/L (98-107); Cholesterol 81 mg/dL (<200); Glucose 81 mg/dL (74-99); HDL Cholesterol 22 mg/dL (40-60); Non-African American GFR(MDRD) >60 (>60 ml/min/1.73 sqM); Potassium 4.1 mmol/L (3.5-5.1); Sodium 143 mmol/L (137-145); Triglycerides 143 mg/dL (<150)
[2016-07-12 08:30] VITALS: PULSE 84
[2016-07-12] MEDS: PANTOPRAZOLE 40 MG TABLET PO SCH (08:33)
[2016-07-12] MEDS: FLUCONAZOLE 100 MG TAB PO SCH (08:34)
[2016-07-12 08:59] LABS: Anisocytosis Slight; CH 25.4; CHCM 30.7; HCT 34.8 % (39.0-53.0); HDW 2.85; HGB 10.9 gm/dL (13.0-17.5); Hypochromasia Moderate; MCH 26.1 pg (25.0-35.0); MCHC 31.3 g/dL (31.0-37.0); MCV 83.4 fL (80.0-100.0); Mean Platelet Volume 7.5; RBC 4.17 m/uL (4.30-5.90); RDW 17.4 % (11.5-15.5); WBC 15.4 k/uL (3.8-10.6); WBC (Perox) 15.59
[2016-07-12] MEDS ORDERED: ATORVASTATIN 40 MG TAB PO SCH (09:00)
--- NOTE | 2016-07-12 09:36 | P.PN ---
Subjective Principal diagnosis: Hematemesis 61-year-old male admitted with acute hematemesis leukocytosis with underlying myeloproliferative disorder status post EGD with findings of Hatch's esophagus with nonbleeding ulcerations. Tolerating regular diet. Denies abdominal pain. No recurrence of hematemesis. White count 15.4. Hemoglobin 10.9. Objective - Vital Signs Vital signs: Vital Signs Temp 97.8 F 07/12/16 07:00 Pulse 84 07/12/16 07:15 Resp 18 07/12/16 07:00 BP 118/67 07/12/16 07:00 Pulse Ox 98 07/12/16 07:00 Intake & Output 07/11/16 07/12/16 07/12/16 18:59 06:59 18:59 Intake Total 1037.50 1600 Output Total 0 Balance 1037.50 1600 Intake: IV 1037.50 Sodium Chloride 0.9% 1, 937.50 000 ml @ 125 mls/hr IV . Q8H [facility] Rx#:[id number] Intake, IV Titration 1200 Amount Sodium Chloride 0.9% 1, 1200 000 ml @ 150 mls/hr IV . Q6H40M [facility] Rx#:[id number] Oral 400 Output: Stool 0 Other: Voiding Method Toilet Toilet Toilet # Voids 3 1 - Exam General appearance: The patient is alert, oriented, in no acute distress. HET: Head is normocephalic and atraumatic. Pupils are equal and reactive. Oropharynx is clear without lesions. Neck: Supple without lymphadenopathy. Trachea midline. Heart: S1 S2. Regular rate and rhythm. Lungs: No crackles or wheezes are heard. Abdomen: Soft, nontender, nondistended with bowel sounds. No peritoneal signs. No palpable organomegaly or masses. Extremities: Normal skin color and turgor. No cyanosis, rash, ulceration, clubbing, or edema. Radial and pedal pulses are 2/4 bilaterally. Neurological: No focal deficits. Strength and sensation are grossly intact. - Labs CBC & Chem 7: 07/12/16 07:42 07/12/16 07:42 Labs: Abnormal Lab Results - Last 24 Hours (Table) 07/11/16 07/12/16 07/12/16 Range/Units 08:32 07:42 07:42 WBC 21.8 H 15.4 H (3.8-10.6) k/uL RBC 4.17 L (4.30-5.90) m/uL Hgb 11.6 L 10.9 L (13.0-17.5) gm/dL Hct 36.8 L 34.8 L (39.0-53.0) % RDW 17.4 H 17.4 H (11.5-15.5) % Plt Count 513 H (150-450) k/uL Neutrophils # 18.0 H (1.3-7.7) k/uL Chloride 113 H (98-107) mmol/L Calcium 7.6 L (8.4-10.2) mg/dL HDL Cholesterol 22 L (40-60) mg/dL Assessment and Plan (1) Hematemesis Narrative/Plan: 61-year-old gentleman admitted with acute onset of nausea, midepigastric discomfort, and one time episode of hematemesis with a history of underlying Hatch's esophagus, blood disorder and leukocytosis. Status post EGD with findings of Hatch's esophagus with nonbleeding ulcerations and improvement in leukocytosis. Status: Acute (2) Upper GI bleed Status: Acute (3) Hyperkalemia Status: Acute (4) Blood disorder Status: Acute (5) Leukocytosis Status: Acute Plan: 1. Omeprazole 40 mg daily. 2. Return to GI office in 7-10 days. Assessment and plan a care discussed with Dr. Baxter.
--- NOTE | 2016-07-12 10:24 | US ---
EXAMINATION TYPE: US carotid duplex BILAT DATE OF EXAM: 07/11/2016 7:52 PM COMPARISON: NONE CLINICAL HISTORY: facial asymmetry. EXAM MEASUREMENTS: RIGHT: Peak Systolic Velocity (PSV) cm/sec ----- Right CCA: 98.4 ----- Right ICA: 114.1 ----- Right ECA: 69.3 ICA/CCA ratio: 1.2 RIGHT: End Diastole cm/sec ----- Right CCA: 27.3 ----- Right ICA: 25.4 ----- Right ECA: 6.3 LEFT: Peak Systolic Velocity (PSV) cm/sec ----- Left CCA: 78.6 ----- Left ICA: 100.3 ----- Left ECA: 93.5 ICA/CCA ratio: 1.3 LEFT: End Diastole cm/sec ----- Left CCA: 25.4 ----- Left ICA: 19.5 ----- Left ECA: 14.4 VERTEBRALS (direction of flow): Right Vertebral: Antegrade Left Vertebral: Antegrade TECHNOLOGIST IMPRESSION: Mild amount of plaque visualized bilateral bulbs, no elevated velocities, n o significant stenosis Grayscale, color Doppler, spectral Doppler imaging performed of the carotid arteries. IMPRESSION: No hemodynamic significant stenosis of the proximal internal carotid arteries bilaterall y by Doppler criteria, and indirect measurement of carotid stenosis.
[2016-07-12 10:25] LABS: Add Differential Manual Differential
[2016-07-12 10:29] LABS: Nucleated Red Blood Cells 0 /100 WBC (0-0); Total Cells Counted 100
--- NOTE | 2016-07-13 11:54 | DS ---
DATE OF ADMISSION: 07/09/2016 DATE OF DISCHARGE: 07/12/2016 FINAL DIAGNOSES: 1. Acute severe gastrointestinal bleed from severe esophagitis and gastritis with multiple ulcers in esophagus from alcoholism and NSAIDS. 2. Severe esophagitis with multiple esophageal ulcers with some white patches. 3. Hyperkalemia, improved. 4. Mild persistent asthma. 5. Chronic gastroesophageal reflux disease. 6. Obesity, body mass index of 33.9. 7. Hatch's esophagus, severe. 8. Acute severe blood loss anemia with hypotension requiring blood transfusion and possible shock. 9. No evidence of stroke. 10. Chronic myeloproliferative disorder. CONSULTATIONS: Dr. Lazo from hematology; Dr. Campa from GI. HOSPITAL COURSE: This patient vomiting blood, dark stools. EGD showed severe gastritis and esophagitis with ulcers, but got some white patches present. I did start the patient on Diflucan too. Patient counseled against use of aspirin. NSAIDs. No alcohol. Patient was transferred a unit of blood. Patient's hemoglobin was 10.9 by the time of discharge. The patient was given information on his findings. Today, patient is counseled a bit against alcohol, use of NSAIDs. ON EXAM: ABDOMEN: Soft, nontender. Follow up with Dr. Lazo on 07/18/16. Follow up with Dr. Campa on 08/01/16. Follow up with Dr. Lissy Rios on 07/19/16. Discharge planning more than 35 minutes. DISCHARGE MEDICATIONS: 1. ProAir 2 puff q.6 p.r.n. 2. Advair 1 puff b.i.d. 3. Zestoretic 03/27.5 one tablet daily. 4. Tylenol No.3 one tablet q.6 p.r.n. for pain. 5. Diflucan 100 mg a day, 14 tablets. 6. Omeprazole 40 mg a day.
== END 2016-07-12 15:20 | disposition home or self-care (01) | DRG 381 ==
LOC: EC 08:33 → 5MS5E 12:57
PROVIDERS: ADMIT Hospitalist; ATTEND Hospitalist
PROC: 0DB68ZX Excision of Stomach, Via Natural or Artificial Opening Endoscopic, Diagnostic (ICD-10-PCS; principal; 2016-07-11 13:05)
PROC: 0DB58ZX Excision of Esophagus, Via Natural or Artificial Opening Endoscopic, Diagnostic (ICD-10-PCS; principal; 2016-07-11 13:05)
DX: K22.11 Ulcer of esophagus with bleeding (principal); D47.1 Chronic myeloproliferative disease; K29.21 Alcoholic gastritis with bleeding; D62 Acute posthemorrhagic anemia; E87.5 Hyperkalemia; D72.829 Elevated white blood cell count, unspecified; D75.89 Other specified diseases of blood and blood-forming organs; F10.20 Alcohol dependence, uncomplicated; I10 Essential (primary) hypertension; J45.30 Mild persistent asthma, uncomplicated; K21.0 Gastro-esophageal reflux disease with esophagitis; K44.9 Diaphragmatic hernia without obstruction or gangrene; Z79.82 Long term (current) use of aspirin; Z86.73 Personal history of transient ischemic attack (TIA), and cerebral infarction without residual deficits; Z79.1 Long term (current) use of non-steroidal anti-inflammatories (NSAID); Z79.899 Other long term (current) drug therapy; Z88.7 Allergy status to serum and vaccine
CPT/HCPCS: 36415; 43239; 70450; 71020; 74000; 80048; 80053; 80061; 82150; 82272; 82550; 82553; 83690; 83735; 84132; 84484; 85025; 85610; 85730; 86850; 86900; 86901; 86920; 88305; 88342; 93005; 93880; 94640; 96361; 96374; 96375; 99285

== ENCOUNTER → 2019-03-31 | Outpatient (CLI) | payer MEDICARE, BC ==
--- NOTE | 2019-03-31 11:04 | US ---
EXAMINATION TYPE: US venous doppler duplex LE LT DATE OF EXAM: 03/31/2019 10:51 AM COMPARISON: NONE CLINICAL HISTORY: M79.605,R22.42 PAIN AND SWELLING LT LOWER LIMB. Left leg pain x couple days SIDE PERFORMED: Left TECHNIQUE: The lower extremity deep venous system is examined utilizing real time linear array sonog deepak with graded compression, doppler sonography and color-flow sonography. VESSELS IMAGED: External Iliac Vein (EIV) Common Femoral Vein Deep Femoral Vein Greater Saphenous Vein * Femoral Vein Popliteal Vein Small Saphenous Vein * Proximal Calf Veins (* superficial vessels) Left Leg: Appears negative for DVT No suspicious thrombosis or noncompressible structures are evident. IMPRESSION: 1. Left lower extremity ultrasound negative for deep venous thrombosis.
--- NOTE | 2019-03-31 14:12 | XR ---
Left knee HISTORY: Pain in left knee 3 views the left knee Bone mineralization, joint spaces and alignment are maintained. Suprapatellar increased density may i ndicate a joint effusion. IMPRESSION: No fracture or dislocation.
== END | disposition home or self-care (01) ==
LOC: RADUSWWP 10:26
PROVIDERS: ATTEND Family Medicine
DX: M25.562 Pain in left knee (principal); M79.605 Pain in left leg; R22.42 Localized swelling, mass and lump, left lower limb

== ENCOUNTER 2019-07-14 08:13 | Day surgery (SDC) | payer MEDICARE, BC ==
[2019-07-13 09:18] VITALS: BMI 35.5
[~2019-07-14 08:13] MED LIST: LACTATED RINGERS 1,000 ML IV SCH; LIDOCAINE 1% 20 ML VIAL (10MG/ML) FOR IV START INTRADERMA PRN
[2019-07-14 08:54] VITALS: RESP 16; TEMP 96.9
[2019-07-14] MEDS ORDERED: LIDOCAINE 1% INJ 10MG/ML (20 ML MDV) ONE (09:24)
[2019-07-14] MEDS ORDERED: PROPOFOL 10 MG/ML 20 ML VIAL IV ONE (09:24)
--- NOTE | 2019-07-14 09:38 | P.PCN ---
Date of Procedure: 07/14/19 Procedure(s) Performed: BRIEF HISTORY: Patient is a 64-year-old, pleasant, male, scheduled for an upper endoscopy as part of evaluation of long-standing history of gastric esophageal reflux disease and Hatch's esophagus and was diagnosed in June [address] Campa. Patient's remain asymptomatic. He scheduled for a surveillance upper endoscopy today.. PROCEDURE PERFORMED: Esophagogastroduodenoscopy with biopsy. PREOPERATIVE DIAGNOSIS: Surveillance of long-standing history of GERD/Hatch's esophagus. IV sedation per anesthesia. PROCEDURE: After informed consent was obtained, the patient was brought into the endoscopy unit. IV sedation was administered by Anesthesia under continuous monitoring. Initially the Olympus GIF-140 video endoscope was inserted into the mouth. Esophagus intubated without any difficulty. It was gradually advanced into the stomach and duodenum and carefully examined. The bulb and the second part of the duodenum appeared normal. The scope at this time was withdrawn to the stomach, adequately insufflated with air, and upon careful examination, mucosa of the antrum, body, cardia and the fundus appeared normal. The scope was then withdrawn into the esophagus. Moderate size hiatal hernia noted. There was long segment of Hatch's esophagus extending from 29-37 cm from the incisors and the mucosa appeared slightly erythematous but no nodules identified. No ulcerations seen. Multiple biopsies were done from the distal as well as the proximal segment of the Hatch's esophagus at every 1 m into the rule out dysplasia. The rest of the esophagus appeared normal. In the near GE junction which was at 29 cm from the incisors there 2 superficial erosions consistent with LA grade B reflux esophagitis. The patient tolerated the procedure well. IMPRESSION: 1. Long segment Hatch's esophagus extending from 29=37 cm from the incisors status post multiple biopsies to rule out dysplasia. 2. Moderate size hiatal hernia. 3. LA grade B reflux esophagitis RECOMMENDATIONS: The findings of this examination were discussed with the patient as well as his family. He was advised to follow with the biopsy results. If the biopsy shows no evidence of dysphasia he can have a repeat upper endoscopy every 2 years. In the meantime he was advised to start on omeprazole 20 mg daily and follow antireflux measures.
[2019-07-14 09:55] VITALS: BP 126/66; PULSE 72
== END 2019-07-14 10:18 | disposition home or self-care (01) ==
LOC: ORWHC2ENDO 08:13
PROVIDERS: ATTEND Internal Medicine Gastroenterology
DX: K22.70 Barrett's esophagus without dysplasia (principal); K21.0 Gastro-esophageal reflux disease with esophagitis; K44.9 Diaphragmatic hernia without obstruction or gangrene; I10 Essential (primary) hypertension; D45 Polycythemia vera; J45.909 Unspecified asthma, uncomplicated; Z79.82 Long term (current) use of aspirin; Z79.899 Other long term (current) drug therapy
CPT/HCPCS: 88305; 43239; J2001; J2704

== ENCOUNTER 2021-06-12 07:17 | Day surgery (SDC) | payer MEDICARE, BC ==
[2021-06-12 07:44] VITALS: RESP 16; TEMP 97.4
[2021-06-12] MEDS ORDERED: LIDOCAINE 1% (10MG/ML) FOR IV START INTRADERMA ONE (07:44)
[2021-06-12] MEDS ORDERED: LACTATED RINGERS 1,000 ML IV ONE (07:44)
[2021-06-12] MEDS ORDERED: fentaNYL (PF) 50 MCG/ML 2 ML AMP ONE (08:44)
[2021-06-12] MEDS ORDERED: MIDAZOLAM 2 MG/2 ML VIAL ONE (08:44)
[2021-06-12] MEDS ORDERED: PROPOFOL 10 MG/ML 20 ML VIAL IV ONE (08:44)
--- NOTE | 2021-06-12 09:13 | P.PCN ---
Date of Procedure: 06/12/21 Procedure(s) Performed: BRIEF HISTORY: Patient is a 65-year-old pleasant white male scheduled for an elective colonoscopy as a part of screening for colorectal neoplasia. His last colonoscopy was 10 years ago. PROCEDURE PERFORMED: Colonoscopy with snare polypectomy. PREOPERATIVE DIAGNOSIS: Screening for colon cancer. IV sedation per Anesthesia. PROCEDURE: After informed consent was obtained, the patient, was brought into the endoscopy unit. IV sedation was administered by Anesthesia under continuous monitoring. Digital rectal examination was normal. Initially the Olympus CF-160 flexible video colonoscope was then inserted in the rectum, gradually advanced into the cecum without any difficulty. Careful examination was performed as the scope was gradually being withdrawn. Ileocecal valve and the appendiceal orifice were visualized and appeared normal. Prep was excellent. Mucosa of the cecum, appeared normal. In the ascending colon there was a 5 mm sessile polyp removed by snare polypectomy. ascending colon, transverse colon, descending colon, sigmoid colon, and rectum appeared normal. Retroflexion was performed in the rectum and no lesions were seen. The patient tolerated the procedure well. IMPRESSION: 5 mm sessile ascending colon polyp status post snare polypectomy Rest of the colon was normal RECOMMENDATIONS: Findings of this examination were discussed with the patient his family. He was advised to follow with the biopsy results and if the biopsy reveals adenoma, he can have a repeat colonoscopy in 5 years.
[2021-06-12] MEDS ORDERED: LIDOCAINE 1% (10MG/ML) FOR IV START INTRADERMA PRN (09:23)
[2021-06-12] MEDS ORDERED: LACTATED RINGERS 1,000 ML IV SCH (09:23)
[2021-06-12 09:42] VITALS: BP 126/65; PULSE 73
== END 2021-06-12 09:49 | disposition home or self-care (01) ==
LOC: ORWHC2ENDO 07:17
PROVIDERS: ATTEND Internal Medicine Gastroenterology
DX: Z12.11 Encounter for screening for malignant neoplasm of colon (principal); D12.2 Benign neoplasm of ascending colon
CPT/HCPCS: 45385; J2250; J3010; J2704; 88305

== ENCOUNTER 2021-08-24 08:57 | Day surgery (SDC) | payer BC, MEDICARE ==
[2021-08-22 15:45] VITALS: BMI 35.2
[~2021-08-24 08:57] MED LIST changes: -LIDOCAINE 1% 20 ML VIAL (10MG/ML) FOR IV START INTRADERMA PRN
[2021-08-24 09:43] VITALS: TEMP 97.8
[2021-08-24] MEDS ORDERED: LIDOCAINE 1% (10MG/ML) FOR IV START INTRADERMA ONE (09:55)
[2021-08-24] MEDS ORDERED: LACTATED RINGERS 1,000 ML IV ONE (09:57)
[2021-08-24] MEDS ORDERED: LIDOCAINE 1% INJ 10MG/ML (20 ML MDV) ONE (11:14)
[2021-08-24] MEDS ORDERED: PROPOFOL 10 MG/ML 20 ML VIAL IV ONE (11:14)
[2021-08-24] MEDS ORDERED: SODIUM CHLORIDE 0.9% 500 ML 500 ML IV ONE (11:18)
--- NOTE | 2021-08-24 11:24 | P.PCN ---
Date of Procedure: 08/24/21 Procedure(s) Performed: BRIEF HISTORY: Patient is a 66-year-old, pleasant, male scheduled for an upper endoscopy as a part of surveillance of long-standing history of GERD and Hatch's esophagus. Last EGD was 3 years ago.. PROCEDURE PERFORMED: Esophagogastroduodenoscopy with biopsy. PREOPERATIVE DIAGNOSIS: GERD/Hatch's esophagus. IV sedation per anesthesia. PROCEDURE: After informed consent was obtained, the patient was brought into the endoscopy unit. IV sedation was administered by Anesthesia under continuous monitoring. Initially the Olympus GIF-140 video endoscope was inserted into the mouth. Esophagus intubated without any difficulty. It was gradually advanced into the stomach and duodenum and carefully examined. The bulb and the second part of the duodenum appeared normal. The scope at this time was withdrawn to the stomach, adequately insufflated with air, and upon careful examination, mucosa of the antrum, body, cardia and the fundus appeared normal. The scope was then withdrawn into the esophagus. The GE junction was located at 30 cm from the incisors. Was long segment of Hatch's esophagus extending from 30-35 cm from the incisors and multiple biopsies were done from this area. The mucosa in the Hatch's esophagus appeared normal moderate identified. The esophagus appeared normal. There were no erosions or ulcerations seen and the patient tolerated the procedure well. IMPRESSION: 1. Long segment Hatch's esophagus extending from 30-35 cm from the incisors status post multiple biopsies to rule out dysplasia. 2. Moderate size hiatal hernia.. RECOMMENDATIONS: The findings of this examination were discussed with the patient as well as his family. He with Prilosec 20 mg daily. He was advised to follow with the biopsy results. If the biopsy does not have any evidence of dysplasia, he can have a repeat upper endoscopy in 3 years..
[2021-08-24 11:46] VITALS: BP 117/74; PULSE 67; RESP 16
== END 2021-08-24 12:08 | disposition home or self-care (01) ==
LOC: ORWHC2ENDO 08:57
PROVIDERS: ATTEND Internal Medicine Gastroenterology
DX: K22.70 Barrett's esophagus without dysplasia (principal); K21.9 Gastro-esophageal reflux disease without esophagitis; K44.9 Diaphragmatic hernia without obstruction or gangrene
CPT/HCPCS: 43239; 88305; J2001; J2704

== ENCOUNTER → 2023-07-16 | Outpatient (CLI) | payer MEDICARE ==
--- NOTE | 2023-07-16 17:14 | CA ---
Transthoracic Echo Report Name: Fadi Reaves Age: 68 Gender: M : 1955 Exam Date: 07/16/2023 14:37 Exam Location: [facility] Ht (in): 66 Wt (lb): 220 Ordering Physician: Paul Madrigal MD Attending/Referring Phys: Tire Assembler Liana Hemphill RDCS Procedure CPT: Indications: R60.1 EDEMA Cardiac Hx: Technical Quality: Fair Contrast 1: Total Dose (mL): Contrast 2: Total Dose (mL): MEASUREMENTS (Male / Female) Normal Values 2D ECHO LV Diastolic Diameter PLAX 4.4 cm 4.2 - 5.9 / 3.9 - 5.3 cm LV Systolic Diameter PLAX 2.7 cm IVS Diastolic Thickness 1.3 cm 0.6 - 1.0 / 0.6 - 0.9 cm LVPW Diastolic Thickness 1.3 cm 0.6 - 1.0 / 0.6 - 0.9 cm LV Relative Wall Thickness 0.6 RV Internal Dim ED PLAX 3.0 cm LA Volume 37.3 cm??? 18 - 58 / 22 - 52 cm??? LA Volume Index 17.0 cm???/m??? 16 - 28 cm???/m??? M-MODE Aortic Root Diameter MM 3.4 cm LA Systolic Diameter MM 3.6 cm LA Ao Ratio MM 1.1 AV Cusp Separation MM 2.1 cm DOPPLER AV Peak Velocity 148.9 cm/s AV Peak Gradient 8.9 mmHg AV Mean Velocity 104.9 cm/s AV Mean Gradient 4.8 mmHg AV Velocity Time Integral 24.8 cm LVOT Peak Velocity 141.4 cm/s LVOT Peak Gradient 8.0 mmHg LVOT Velocity Time Integral 25.4 cm MV Area PHT 2.7 cm??? Mitral E Point Velocity 71.5 cm/s Mitral A Point Velocity 69.1 cm/s Mitral E to A Ratio 1.0 MV Deceleration Time 282.6 ms TR Peak Velocity 213.1 cm/s TR Peak Gradient 18.2 mmHg Right Ventricular Systolic Press 22.2 mmHg FINDINGS Left Ventricle Mildly increased left ventricular wall thickness. Left ventricular cavity size normal. Left ventricular ejection fraction is estimated at 55-60 %. Right Ventricle Normal right ventricular size and function. Right ventricular systolic pressure within normal limits. Right Atrium Normal right atrial size. Left Atrium Normal left atrial size. Mitral Valve Structurally normal mitral valve. Mild mitral annular calcification. Trace to mild mitral regurgitation. Aortic Valve Trileaflet aortic valve. Thickened aortic valve without stenosis. Tricuspid Valve Structurally normal tricuspid valve. Mild tricuspid regurgitation. Pulmonic Valve Structurally normal pulmonic valve. Trace pulmonic regurgitation. Pericardium No pericardial effusion. Aorta Normal size aortic root and proximal ascending aorta. CONCLUSIONS Left ventricular ejection fraction is estimated at 55-60 %. Mildly increased left ventricular wall thickness. Normal right ventricular size and function. Calcific thickening of aortic valve with no stenosis or regurgitation Mild mitral annular calcific No pericardial effusion Previewed by: Dr Yazan Wolf (Electronically Signed) Final Date: 16 July 2023 17:14
== END | disposition home or self-care (01) ==
LOC: RADECHMAIN 14:26
PROVIDERS: ATTEND Family Medicine
DX: I34.81 Nonrheumatic mitral (valve) annulus calcification (principal); I35.8 Other nonrheumatic aortic valve disorders; I51.7 Cardiomegaly; R60.1 Generalized edema
CPT/HCPCS: 93306

== ENCOUNTER → 2024-09-10 | Day surgery (SDC) | payer MEDICARE ==
[2024-09-08 15:47] VITALS: BMI 33.9
[~2024-09-10] MED LIST changes: +LIDOCAINE 2% (PF) 20 MG/ML 5 ML VIAL ONE; +PROPOFOL 10 MG/ML 20 ML VIAL IV ONE
[2024-09-10] MEDS: LACTATED RINGERS 500 ML IV ONE (12:23)
[2024-09-10 12:27] VITALS: TEMP 96.8
--- NOTE | 2024-09-10 13:01 | P.PCN ---
Date of Procedure: 09/10/24 Procedure(s) Performed: BRIEF HISTORY: Patient is a 69-year-old, pleasant, white male scheduled for an upper endoscopy as a part evaluation of longstanding history d history of GERD and Hatch's esophagus. Last EGD was 3 years ago.. PROCEDURE PERFORMED: Esophagogastroduodenoscopy with biopsy. PREOPERATIVE DIAGNOSIS: GERD/Hatch's esophagus. IV sedation per anesthesia. PROCEDURE: After informed consent was obtained, the patient was brought into the endoscopy unit. IV sedation was administered by Anesthesia under continuous monitoring. Initially the Olympus GIF-140 video endoscope was inserted into the mouth. Esophagus intubated without any difficulty. It was gradually advanced into the stomach and duodenum and carefully examined. The bulb and the second part of the duodenum appeared normal. The scope at this time was withdrawn to the stomach, adequately insufflated with air, and upon careful examination, mucosa of the antrum, body, cardia and the fundus appeared normal. The scope was then withdrawn into the esophagus. Moderate size hiatal hernia noted. The GE junction was located at 35 cm from the incisors. There was a long segment of Hatch's esophagus extending from 30 to 35 cm from the incisors and multiple biopsies were done from this area. The esophagus appeared normal. There were no erosions or ulcerations seen and the patient tolerated the procedure well. IMPRESSION: 1. Long segment Hatch's esophagus. 2. Moderate size hiatal hernia.. RECOMMENDATIONS: The findings of this examination were discussed with the patient as well as his family. He was advised to follow-up with the biopsy results. If the biopsy does not show any evidence of dysplasia, he can have repeat upper endoscopy in 3 years.. In the meantime continue with omeprazole 20 mg daily and follow antireflux measures.
[2024-09-10 13:17] VITALS: RESP 20
[2024-09-10 13:48] VITALS: BP 114/67; PULSE 70
== END ==
LOC: ORWHC2ENDO 11:40
PROVIDERS: ATTEND Internal Medicine Gastroenterology
DX: K22.70 Barrett's esophagus without dysplasia (principal); K21.9 Gastro-esophageal reflux disease without esophagitis; K44.9 Diaphragmatic hernia without obstruction or gangrene; I10 Essential (primary) hypertension; J45.909 Unspecified asthma, uncomplicated; Z79.82 Long term (current) use of aspirin; Z79.899 Other long term (current) drug therapy
CPT/HCPCS: 88305; 88312; 43239; J2704; J2003

== ENCOUNTER → 2024-12-18 | Outpatient (CLI) | payer MEDICARE ==
--- NOTE | 2024-12-18 15:14 | MR ---
EXAMINATION TYPE: MR Prostate wo/w con DATE OF EXAM: 12/18/2024 9:49 AM COMPARISON: None. CLINICAL INDICATION: Male, 69 years old with history of R97.20 ELEVATED PSA; Elevated PSA. TECHNIQUE: Multi-planar, multi-sequence imaging of the pelvis is performed prior to and following the uncomplicated administration of bolus intravenous gadolinium. IV Contrast: 9 mL Gadobutrol Interpretive Criteria: PI-RADS v2.1 SERUM PSA: 6.35 5-6-25, 6.28 6-27-25 SURGICAL PATHOLOGY: No data available. FINDINGS: Prostatic dimensions: 4.9 x 4.2 x 2.8 cm. "Bullet" Volume:37.71 (PSA density=0.17 ng/mL/mL) CENTRAL GLAND (Central and Transition Zones/CZ+TZ): Multiple bilateral, heterogenous appearing hypertrophic stromal nodules, without suspicious lesion. M edian lobe hypertrophy with protrusion into the base of the bladder. (PI-RADS 2) PERIPHERAL ZONE (PZ): Bilateral linear, indistinct wedgelike areas of low ADC, and low T2 signal, No evidence of masslike a bnormality, or localized perfusional hypervascularity, to further suggest a focus of clinically signi ficant prostate cancer. (PI-RADS 2) SEMINAL VESICLES (SV): Symmetric and unremarkable. PERIPROSTATIC TISSUES: Unremarkable. LYMPH NODES: No enlarged pelvic lymph node. REMAINING PELVIS: Bladder wall is within normal limits given distention. No abnormal free or organized intrapelvic fluid collection. No pathologic bowel dilation or mural thickening. No hernia visualized OSSEOUS STRUCTURES: No suspicious osseous abnormality. IMPRESSION: 1. No specific features for high-risk prostate cancer. Maximum PI-RADS score: 2. 2. Mild BPH, estimated gland volume 37.71 (PSA density=0.17 ng/mL/mL) 3. No suspicious osseous lesion. No lymphadenopathy. No evidence of prostate adenocarcinoma involving the periprostatic tissues. [facility], , 12/18/2024 3:12 PM
== END | disposition home or self-care (01) ==
LOC: RADMRIMAIN 08:35
PROVIDERS: ATTEND Urology
DX: N40.0 Benign prostatic hyperplasia without lower urinary tract symptoms (principal); R97.20 Elevated prostate specific antigen [PSA]
CPT/HCPCS: 72197; A9585